=== PATIENT | male | born 1965 | race Caucasian/White ===

== ENCOUNTER 2020-10-23 13:22 | Outpatient (CLI) | payer OTHER, SELFPAY ==
--- NOTE | 2020-10-23 13:42 | XRR_ITS ---
PROCEDURE INFORMATION: Exam: XR Left Ribs with PA Chest Exam date and time: 10/23/2020 1:44 PM Age: 55 years old Clinical indication: Bucked off of horse with blunt trauma to the ribs. TECHNIQUE: Imaging protocol: XR Left ribs with PA chest. Views: 3 views COMPARISON: CT chest con [id number] 07/12/2019 1:35 PM FINDINGS: Lungs: No pulmonary consolidation. Pleural spaces: No pleural effusion. No pneumothorax. Heart/Mediastinum: The cardiac silhouette is unremarkable. No gross evidence of pneumomediastinum. Bones/joints: Cervical hardware is noted. No gross fracture. XR/XR ribs LT mn 3V w CXR1V [id number] IMPRESSION: 1. No acute fracture is identified. 2. No acute cardiopulmonary abnormality.
--- NOTE | 2020-10-23 13:42 | XRR_ITS ---
PROCEDURE INFORMATION: Exam: XR Right Knee Exam date and time: 10/23/2020 1:44 PM Age: 55 years old Clinical indication: Trauma. Bucked off of horse. Blunt right knee trauma. TECHNIQUE: Imaging protocol: XR Right knee. Views: 3 views. COMPARISON: No relevant prior studies available. FINDINGS: Tiny undersurface patellar spur. Small to moderate knee joint effusion. No chondrocalcinosis is seen. No fracture, dislocation or subluxation. No periosteal reaction or supsicious bone lesion. XR/XR knee RT 3V* [id number] IMPRESSION: 1. No acute fracture is identified. Consider CT or MRI to further assess if there is continued clinical concern. 2. Small to moderate knee joint effusion. 3. Minimal degenerative changes at the knee.
== END 2020-10-23 13:23 | disposition home or self-care (01) ==
PROVIDERS: PCP Nurse Practitioner Family; Visit Provider Nurse Practitioner Family
DX: S89.91XA Unspecified injury of right lower leg, initial encounter (principal); S29.9XXA Unspecified injury of thorax, initial encounter; X58.XXXA Exposure to other specified factors, initial encounter; M25.461 Effusion, right knee
CPT/HCPCS: 71101; 73562

== ENCOUNTER → 2022-12-31 08:30 | Outpatient (BNVA) | payer OTHER, SELFPAY | PROVIDERS: PCP Nurse Practitioner; Visit Provider Nurse Practitioner | DX: Z00.00 Encounter for general adult medical examination without abnormal findings (principal) | CPT/HCPCS: 80053; 80061; 82306; 84443; 85025; G0103 ==

== ENCOUNTER → 2023-02-12 15:58 | Outpatient (BNVA) | payer OTHER, SELFPAY | PROVIDERS: PCP Nurse Practitioner; Visit Provider Nurse Practitioner | DX: M25.522 Pain in left elbow (principal) | CPT/HCPCS: 73080 ==

== ENCOUNTER → 2023-02-13 09:00 | Outpatient (BNVA) | payer OTHER, SELFPAY | PROVIDERS: PCP Nurse Practitioner; Visit Provider Nurse Practitioner Family | DX: M19.022 Primary osteoarthritis, left elbow (principal); Z87.81 Personal history of (healed) traumatic fracture | CPT/HCPCS: 73080 ==

== ENCOUNTER 2023-04-01 08:46 | Day surgery (SDC) | payer OTHER, SELFPAY ==
[2023-03-30 07:58] VITALS: BMI 30.2
[2023-04-01 09:20] VITALS: BP 121/68; PULSE 49; RESP 18; TEMP 36.3; O2SAT 96
[2023-04-01] MEDS: sodium chloride 0.9% 1,000 ML 30 ML IV (09:25)
--- NOTE | 2023-04-01 09:30 | ANES.PREANE2 ---
Pre-Anesthetic Assessment Height/Weight: Height 1.78 m Weight 95.708 kg Temp Pulse Resp BP Pulse Ox O2 Del Method 97.3 F L 49 L 18 121/68 96 Room Air 04/01/23 09:20 04/01/23 09:20 04/01/23 09:20 04/01/23 09:20 04/01/23 09:20 04/01/23 09:20 Preop Diagnosis: screening, hx malignancy of colon Operation Date: 04/01/23 09:45 Proposed Procedures p Colonoscopy 99974,Z12.11, Z86.010,Z80.0(Not Applicable) - Anjel Wood, DO Was Beta Annmarie taken within 24 hours: N/A Was Clonidine taken within 24 hours: N/A Last intake: Intake Last Liquid Date 03/31/23 Last Liquid Time 22:00 Last Solid Date 03/30/23 Last Solid Time 23:00 Social No alcohol and No tobacco Exam alert, oriented x 3, clear to auscultation bilaterally and regular rate & rhythm Airway Submandibular: within normal limits Cervical ROM: within normal limits Mallampati: Class I History/ROS No significant history except as noted and No significant complaints Pulmonary Asthma productive cough at baseline CV/HEM Coronary Artery Disease denies CP and SOB, METS > 4 None reported Hepatic None reported GI None reported Metabolic None reported Musc/skel None reported Neuropsych None reported Anesthetic Plan ASA status: 2 Anesthesia: Anesthesia Evaluation and MAC Risk of > 500 ml blood loss (7ml/kg in children): Yes, adequate IV access and fluids planned Medications/Allergies Home Medications Medication Instructions Recorded Confirmed Last Taken Type No Known Home Medications 02/10/23 04/01/23 Unknown History Allergies Allergy/AdvReac Type Severity Reaction Status Date / Time No Known Allergies Allergy Verified 04/01/23 09:16 Current Medications Generic Name Dose Route Start Last Admin Trade Name Freq PRN Reason Stop Dose Admin Sodium Chloride 1,000 mls @ 30 mls/hr 04/01/23 09:00 04/01/23 09:25 Sodium Chloride 0.9% IV 04/02/23 08:59 30 mls/hr .Q24H WILBERT Administration PFSH Anesthesia Medical History Right knee injury Traumatic injury of rib Surgical History History of esophagogastroduodenoscopy (EGD) 2019 Hx of colonoscopy with polypectomy 08/2019 recommended repeat colonoscopy in 2 yrs for surveillance based on path results Dr. Delores Dumas Hx of neck surgery fusion 2006 Family History Mother Cancer breast cancer Sister Cancer uterin Father Cancer Social History Smoking and tobacco status: current every day smoker smokeless tobacco Smokeless tobacco user: chewing tobacco Alcohol intake: current Alcohol intake frequency: holidays/special occasions only Data Anesthesia Cardiac Studies: No Data to Display
--- NOTE | 2023-04-01 10:01 | PM.HP ---
Providers/Chief Complaint Primary Care Provider: Fiordaliza Bonner APN Chief Complaint: [id number], Z12.11, Z86.010 History of Present Illness Yifan Hammonds is a 58 year old male Medications/Allergies Home Medications Medication Instructions Recorded Confirmed Last Taken Type No Known Home Medications 02/10/23 04/01/23 Unknown History Allergies Allergy/AdvReac Type Severity Reaction Status Date / Time No Known Allergies Allergy Verified 04/01/23 09:16 PFSH Acute PFSH: Medical History Right knee injury Traumatic injury of rib Surgical History History of esophagogastroduodenoscopy (EGD) 2019 Hx of colonoscopy with polypectomy 08/2019 recommended repeat colonoscopy in 2 yrs for surveillance based on path results Dr. Delores Dumas Hx of neck surgery fusion 2006 Family History Mother Cancer breast cancer Sister Cancer uterin Father Cancer Social History Smoking and tobacco status: current every day smoker smokeless tobacco Smokeless tobacco user: chewing tobacco Alcohol intake: current Alcohol intake frequency: holidays/special occasions only Vitals/I&O/Wt Last Vital Signs Temp 97.3 F L 04/01/23 09:20 Pulse 49 L 04/01/23 09:20 Resp 18 04/01/23 09:20 BP 121/68 04/01/23 09:20 Pulse Ox 96 04/01/23 09:20 O2 Del Method Room Air 04/01/23 09:20 A&P Assessment and plan (1) Encounter for screening for malignant neoplasm of colon: Plan Colonoscopy Attestations Medical Necessity Statement*: Home Coding Level of Care Code Acute Code for Chg Fwd Diagnoses Encounter for screening for malignant neoplasm of colon Z12.11
[2023-04-01 10:18] VITALS: BP 117/68; PULSE 56; RESP 16; TEMP 36.2; O2SAT 95
[2023-04-01 10:31] VITALS: BP 116/70; PULSE 52; RESP 16; O2SAT 97
--- NOTE | 2023-04-01 10:55 | ANE.PACU2 ---
Inpatient post-anesthesia follow up: Airway intact: Yes Vital signs: Temperature 97.1 F Pulse Rate 52 Respiratory Rate 16 Blood Pressure 116/70 Pulse Oximetry 97 Oxygen Delivery Me thod Room Air Oxygen Flow Rate Fraction of Inspir ed Oxygen Hydration adequate: No Nausea and vomiting: Yes Pain level: 1 Mental status: Baseline
== END 2023-04-01 10:55 | disposition home or self-care (01) ==
PROVIDERS: PCP Nurse Practitioner; Visit Provider Surgery
PROC: 0DJD8ZZ Inspection of Lower Intestinal Tract, Via Natural or Artificial Opening Endoscopic (ICD-10-PCS; CPT 45378; principal; 2023-04-01 09:45)
DX: Z12.11 Encounter for screening for malignant neoplasm of colon (principal); Z80.0 Family history of malignant neoplasm of digestive organs; Z86.010 Personal history of colon polyps; F17.290 Nicotine dependence, other tobacco product, uncomplicated; J45.909 Unspecified asthma, uncomplicated; I25.10 Atherosclerotic heart disease of native coronary artery without angina pectoris
CPT/HCPCS: 45378; J2704; J7030

== ENCOUNTER → 2023-08-26 15:32 | Outpatient (BNVA) | payer OTHER, SELFPAY | PROVIDERS: PCP Nurse Practitioner; Visit Provider Nurse Practitioner Family | DX: Z79.899 Other long term (current) drug therapy (principal); Z13.6 Encounter for screening for cardiovascular disorders; J44.9 Chronic obstructive pulmonary disease, unspecified | CPT/HCPCS: 80053; 80061; 81003; 83036; 84443; 85025 ==